=== PATIENT | female | born 1995 | race Caucasian/White ===

== ENCOUNTER 2025-06-29 09:13 | Emergency (ER) | payer SELFPAY | END 2025-06-29 09:55 | disposition home or self-care (01) | LOC: MADERS 09:13 | DX: S64.92XA Injury of unspecified nerve at wrist and hand level of left arm, initial encounter (principal); S64.91XA Injury of unspecified nerve at wrist and hand level of right arm, initial encounter; X50.0XXA Overexertion from strenuous movement or load, initial encounter | CPT/HCPCS: 99283 ==